=== PATIENT | female | born 1935 | race Caucasian/White ===

== ENCOUNTER 2020-12-04 11:17 | Day surgery (SDC) | payer MEDICARE ==
[2020-12-04] MEDS ORDERED: LIDOCAINE HCL 2% 100 MG/5 ML IJ ONE (11:18)
[2020-12-04] MEDS ORDERED: Depo-Medrol 40 MG/ML IM ONE (11:18)
--- NOTE | 2020-12-04 14:22 | XRAY ---
Indication: Bilateral L4-S1 MBB. Intraoperative fluoroscopy provided for 14 seconds. 2 digital spot images submitted for interpretation demonstrates posterior needle tips projecting over the expected left and right L4-S1 nerve roots. Correlate with intraoperative findings/report.
--- NOTE | 2020-12-04 15:21 | XRAY ---
14 seconds fluoroscopy time in surgery for bilateral L4-S1 MBB.
[2020-12-04] MEDS ORDERED: Lactated Ringers 1,000 ML IV ONE (16:12)
== END 2020-12-04 13:53 | disposition home or self-care (01) ==
LOC: SDC-PAIN 11:17
PROVIDERS: ATTEND Psychiatry & Neurology Pain Medicine
DX: M47.816 Spondylosis without myelopathy or radiculopathy, lumbar region (principal); I10 Essential (primary) hypertension; E03.9 Hypothyroidism, unspecified; E78.00 Pure hypercholesterolemia, unspecified; F03.90 Unspecified dementia, unspecified severity, without behavioral disturbance, psychotic disturbance, mood disturbance, and anxiety; F41.8 Other specified anxiety disorders; Z79.899 Other long term (current) drug therapy
CPT/HCPCS: 64493; 64494; 72100; 77002; J1030